=== PATIENT | female | born 1950 | race Caucasian/White ===

== ENCOUNTER 2019-11-18 18:00 | Outpatient (CLI) | payer MEDICARE, BC ==
[2014-02-01 10:49] VITALS: BMI 28.4
[~2019-11-18 18:00] MED LIST: FOSAMAX 70 MG T70 MG PO; PRAVACHOL80 MG PO; TIMOPTIC 0.25%1 EACH EACH EYE
== END 2019-11-18 23:59 | disposition home or self-care (01) ==
LOC: D.MAMMO 18:00
PROVIDERS: ATTEND Emergency Medicine
DX: Z12.31 Encounter for screening mammogram for malignant neoplasm of breast (principal)